=== PATIENT | female | born 1990 | race Caucasian/White ===

== ENCOUNTER 2017-03-28 15:51 | Emergency (ER) | payer MEDICAID, OTHER ==
[2017-03-28 15:51] VITALS: BMI 29.5
[2017-03-28 16:13] VITALS: BP 123/74; PULSE 82; RESP 18; TEMP 98.6; O2SAT 100
--- NOTE | 2017-03-28 17:07 | ED PDOC ---
HPI: Abdomen Time Seen by Provider: 03/28/17 16:25 Chief Complaint (Nursing): Back Pain Chief Complaint (Provider): Abdominal Pain History Per: Patient History/Exam Limitations: no limitations Onset/Duration Of Symptoms: Days (ongoing for 7 days), Waxing/Waning (worsening at night) Outside of [place] travel?: No Current Symptoms Are (Timing): Still Present Severity: Moderate Location Of Pain/Discomfort: RLQ, Other (R flank) Associated Symptoms: Back Pain (lower). denies: Fever, Chills, Nausea, Vomiting , Diarrhea, Loss Of Appetite, Urinary Symptoms Alleviating Factors: OTC Meds (Advil, takes 2 tablets every other night) Additional Complaint(s): Keisha Ray is a 26 year old female, with no pertinent past medical history, who presents to the emergency department for the evaluation of waxing and waning right-sided flank pain, worsening at night, radiating to her right lower quadrant and lower back, that the patient has been experiencing for the past 7 days. Patient reports taking 2 tablets of Advil every other night for her pain, providing mild relief. Patient has not seen her primary medical doctor for these symptoms and states that she felt like she was getting a urinary tract infection on Friday; however, these symptoms resolved with hydration by Friday morning. Denies a fever, chills, nausea, vomiting, diarrhea, loss of appetite, or urinary symptoms. Of note, patient is currently not taking any prescription medications and has no known drug allergies. PMD: Mariposa Drummond : 2 Para: 1 Past Medical History Reviewed: Historical Data, Nursing Documentation, Vital Signs Vital Signs: Last Vital Signs Temp 98.6 F 03/28/17 16:09 Pulse 82 03/28/17 16:09 Resp 18 03/28/17 16:09 BP 123/74 03/28/17 16:09 Pulse Ox 100 03/28/17 17:23 - Medical History PMH: No Chronic Diseases - Surgical History Surgical History: No Surg Hx - Family History Family History: States: No Known Family Hx - Social History Current smoker - smoking cessation education provided: No Ex-Smoker (has not smoked in the last 12 months): No Alcohol: None Drugs: Denies - Immunization History Hx Tetanus Toxoid Vaccination: No Hx Influenza Vaccination: No Hx Pneumococcal Vaccination: No - Home Medications Home Medications: Ambulatory Orders Medication Instructions Recorded Nitrofurantoin Macrocrystals 1 cap PO BID #14 cap 08/30/14 [Macrobid] Phenazopyridine Hydrochlorid2 1 tab PO TID #15 tab 08/30/14 [Pyridium] Nitrofurantoin Macrocrystals 100 mg PO BID #10 cap 04/30/15 [Macrobid] Multivit/Folic Acid/I 1 tab PO DAILY 04/16/16 [] Amoxicillin 875 mg PO BID #14 tab 11/06/16 Ibuprofen [Motrin] 600 mg PO Q6 PRN #15 tab 11/06/16 Sulfamethoxazole/Trimethoprim 1 tab PO BID #14 tab 03/28/17 [Bactrim DS 800 mg-160 mg] - Allergies Allergies/Adverse Reactions: Allergies Allergy/AdvReac Type Severity Reaction Status Date / Time No Known Allergies Allergy Verified 04/30/15 15:56 Review of Systems ROS Statement: Except As Marked, All Systems Reviewed And Found Negative Constitutional: Negative for: Fever, Chills Gastrointestinal: Positive for: Abdominal Pain (R flank, radiating to RLQ). Negative for: Nausea, Vomiting, Diarrhea, Other (loss of appetite) Genitourinary Female: Negative for: Dysuria, Hematuria Musculoskeletal: Positive for: Back Pain (lower) Physical Exam - Reviewed Nursing Documentation Reviewed: Yes Vital Signs Reviewed: Yes - Physical Exam Appears: Positive for: Well, Non-toxic, No Acute Distress Head Exam: Positive for: ATRAUMATIC, NORMOCEPHALIC Skin: Positive for: Normal Color, Warm, Dry Eye Exam: Positive for: EOMI, Normal appearance, PERRL ENT: Positive for: Normal ENT Inspection, Other (moist mucous membranes). Negative for: Pharyngeal Erythema, Tonsillar Exudate, Tonsillar Swelling Cardiovascular/Chest: Positive for: Regular Rate, Rhythm. Negative for: Murmur Respiratory: Positive for: Normal Breath Sounds. Negative for: Respiratory Distress Gastrointestinal/Abdominal: Positive for: Normal Exam, Soft. Negative for: Tenderness, Distended, Guarding, Rebound Back: Positive for: Normal Inspection. Negative for: L CVA Tenderness, R CVA Tenderness Neurologic/Psych: Positive for: Alert, Oriented - Laboratory Results Result Diagrams: 03/28/17 17:13 03/28/17 17:13 - ECG O2 Sat by Pulse Oximetry: 100 (RA) Pulse Ox Interpretation: Normal Medical Decision Making Medical Decision Makin:25 Initial Impression: Abdominal pain, lower back pain Differential Diagnoses include, but are not limited to, urinary tract infection , pyelonephritis, kidney stones, ovarian cyst, and musculoskeletal related issues. Initial Plan: * CT Abd & Pelvis w/o Contrast * Complete Blood Count * Comprehensive Metabolic Panel * Lipase * Erythrocyte Sedimentation Rate * Urine Dip * Urine * Urinalysis * Reevaluation Scribe Attestation: Documented by Rohit Owusu, acting as a scribe for Terri Huber MD. Provider Scribe Attestation: All medical record entries made by the Scribe were at my direction and personally dictated by me. I have reviewed the chart and agree that the record accurately reflects my personal performance of the history, physical exam, medical decision making, and the department course for this patient. I have also personally directed, reviewed, and agree with the discharge instructions and disposition. Disposition - Clinical Impression Clinical Impression: UTI (urinary tract infection) - Patient ED Disposition Is Patient to be Admitted: No Doctor Will See Patient In The: Office Counseled Patient/Family Regarding: Diagnosis, Need For Followup, Rx Given - Disposition Disposition: Routine/Home Disposition Time: 18:15 Condition: STABLE Prescriptions: Sulfamethoxazole/Trimethoprim [Bactrim DS 800 mg-160 mg] 1 tab PO BID #14 tab Instructions: Urinary Tract Infection in Women (ED) - POA Present On Arrival: None
[2017-03-28 17:25] LABS: RBC URINE 4 /hpf (0-3); URINE BACTERIA RARE (<OCC); URINE BILIRUBIN NEGATIVE (NEGATIVE); URINE BLOOD NEGATIVE (NEGATIVE); URINE COLOR YELLOW (YELLOW); URINE GLUCOSE (UA) NEG (Normal); URINE KETONE NEGATIVE (NEGATIVE); URINE LEUKOCYTE ESTERASE NEG Leu/uL (Negative); URINE PROTEIN NEGATIVE (NEGATIVE); URINE UROBILINOGEN 0.2-1.0 mg/dL (0.2-1.0); WBC URINE 8 /hpf (0-5)
[2017-03-28 17:36] LABS: BASO # 0.1 K/uL (0.0-0.2); BASO % 0.6 % (0.0-2.0); EOS # 0.3 K/uL (0.0-0.7); EOS % 2.1 % (0.0-4.0); HEMATOCRIT 40.1 % (34.0-47.0); LYMPH # 3.9 K/uL (1.0-4.3); LYMPH % 29.8 % (20.0-40.0); MEAN CORPUSCULAR HEMOGLOBIN 28.6 pg (27.0-31.0); MEAN CORPUSCULAR HGB CONC 33.3 g/dL (33.0-37.0); MEAN PLATELET VOLUME 8.6 fl (7.2-11.7); MONO # 1.1 K/uL (0.0-0.8); MONO % 8.6 % (0.0-10.0); NEUT # 7.7 K/uL (1.8-7.0); NEUT % 58.9 % (50.0-75.0); RED CELL DISTRIBUTION WIDTH 14.3 % (11.5-14.5); WHITE BLOOD COUNT 13.1 K/uL (4.8-10.8)
[2017-03-28] MEDS ORDERED: Tmp-Smz 800 mg-160 mg DS Tab ONE (17:37)
[2017-03-28] MEDS ORDERED: Tmp-Smz 800 mg-160 mg DS Tab PO STA (17:43)
[2017-03-28 17:46] LABS: ALB/GLOB RATIO 1.4 (1.0-2.1); ALKALINE PHOSPHATASE 84 U/L (38-126); ALT/SGPT 43 U/L (9-52); AST/SGOT 32 U/L (14-36); BILIRUBIN,TOTAL 0.3 mg/dl (0.2-1.3); BLOOD UREA NITROGEN 15 mg/dl (7-17); CALCIUM 9.4 mg/dL (8.4-10.2); CARBON DIOXIDE 26 mmol/L (22-30); CHLORIDE 103 mmol/L (98-107); GFR AFRICAN-AMERICAN > 60; GLUCOSE,RANDOM 87 mg/dL (65-105); LIPASE 125 U/L (23-300); POTASSIUM 4.1 MMOL/L (3.6-5.0); SODIUM 142 mmol/l (132-148); TOTAL PROTEIN 8.1 G/DL (6.3-8.2)
--- NOTE | 2017-03-28 18:18 | CT ---
PROCEDURE: CT Abdomen and Pelvis without intravenous contrast HISTORY: right flank pain radiating to RLQ for one week COMPARISON: Comparison is made to the previous study dated 05/05/2015 TECHNIQUE: Contrast Dose: 0 Axial and reformatted coronal and sagittal CT images of the abdomen and pelvis were obtained without IV or oral contrast administration. Radiation dose: Total exam DLP = 524.69 mGy-cm. This CT exam was performed using one or more of the following dose reduction techniques: Automated exposure control, adjustment of the mA and/or kV according to patient size, and/or use of iterative reconstruction technique. FINDINGS: LOWER THORAX: Unremarkable. LIVER: Unremarkable. No gross lesion or ductal dilatation. GALLBLADDER AND BILE DUCTS: Unremarkable. PANCREAS: Unremarkable. No gross lesion or ductal dilatation. SPLEEN: Unremarkable. ADRENALS: Unremarkable. No mass. KIDNEYS AND URETERS: Unremarkable. No hydronephrosis. No solid mass. VASCULATURE: Unremarkable. No aortic aneurysm. BOWEL: Unremarkable. No obstruction. No gross mural thickening. APPENDIX: Unremarkable. Normal appendix. PERITONEUM: Unremarkable. No free fluid. No free air. LYMPH NODES: Slightly enlarged mesenteric lymph nodes suspicious for mesenteric adenitis. BLADDER: Unremarkable. REPRODUCTIVE: The uterus is heterogeneous prominent in size. BONES: No acute fracture. OTHER FINDINGS: None. IMPRESSION: No evidence of nephrolithiasis or hydronephrosis. Slightly enlarged mesenteric lymph nodes. Correlate clinically for mesenteric adenitis. No evidence of cholecystitis pancreatitis or appendicitis. Heterogeneous prominent uterus.
== END 2017-03-28 19:07 | disposition home or self-care (01) ==
LOC: H.ER 15:51
DX: N39.0 Urinary tract infection, site not specified (principal); M54.5 Low back pain; I88.0 Nonspecific mesenteric lymphadenitis; Z87.891 Personal history of nicotine dependence

== ENCOUNTER 2018-02-24 10:27 | Emergency (ER) | payer MEDICAID ==
[2018-02-24 10:32] VITALS: BP 104/68; PULSE 98; RESP 16; TEMP 98.9; O2SAT 96
[2018-02-24 10:33] VITALS: BMI 24.5
--- NOTE | 2018-02-24 11:06 | ED PDOC ---
HPI: CCC, URI, Sore Throat Time Seen by Provider: 02/24/18 10:41 Chief Complaint (Nursing): ENT Problem Chief Complaint (Provider): ENT Prob History Per: Patient History/Exam Limitations: no limitations Have you had recent travel within the past 21 days to any of the following countries: [place], [place], [place] or [place]?: No Onset/Duration Of Symptoms: Days (2) Current Symptoms Are (Timing): Still Present Location Of Pain: Throat Sick Contacts (Context): Family Member(s) Associated Symptoms: Fever, Sore Throat. denies: Cough Ear Symptoms: Left: None, Right: None Severity: Mild Past Medical History Reviewed: Historical Data, Nursing Documentation, Vital Signs Vital Signs: Last Vital Signs Temp 98.9 F 02/24/18 10:30 Pulse 98 H 02/24/18 10:30 Resp 16 02/24/18 10:30 BP 104/68 02/24/18 10:30 Pulse Ox 96 02/24/18 10:30 - Family History Family History: States: Unknown Family Hx Other Family History: son with strep throat - Immunization History Hx Tetanus Toxoid Vaccination: No Hx Influenza Vaccination: No Hx Pneumococcal Vaccination: No - Home Medications Home Medications: Ambulatory Orders Medication Instructions Recorded Nitrofurantoin Macrocrystals 1 cap PO BID #14 cap 08/30/14 [Macrobid] Phenazopyridine Hydrochlorid2 1 tab PO TID #15 tab 08/30/14 [Pyridium] Nitrofurantoin Macrocrystals 100 mg PO BID #10 cap 04/30/15 [Macrobid] Multivit/Folic Acid/I 1 tab PO DAILY 04/16/16 [] Amoxicillin 875 mg PO BID #14 tab 11/06/16 Ibuprofen [Motrin] 600 mg PO Q6 PRN #15 tab 11/06/16 Sulfamethoxazole/Trimethoprim 1 tab PO BID #14 tab 03/28/17 [Bactrim DS 800 mg-160 mg] Amoxicillin/Clavulanate [Augmentin 1 tab PO BID #20 tab 02/24/18 875 MG-125 MG] Lidocaine 2% Viscous 10 ml MM QID #100 ml 02/24/18 - Allergies Allergies/Adverse Reactions: Allergies Allergy/AdvReac Type Severity Reaction Status Date / Time No Known Allergies Allergy Verified 06/28/15 15:56 Review of Systems ROS Statement: Except As Marked, All Systems Reviewed And Found Negative Constitutional: Positive for: Fever ENT: Positive for: Throat Pain. Negative for: Throat Swelling Respiratory: Negative for: Cough, Shortness of Breath Gastrointestinal: Negative for: Nausea, Vomiting Musculoskeletal: Negative for: Neck Pain Skin: Negative for: Rash Physical Exam - Reviewed Nursing Documentation Reviewed: Yes Vital Signs Reviewed: Yes - Physical Exam Appears: Positive for: Well, No Acute Distress. Negative for: Uncomfortable Head Exam: Positive for: ATRAUMATIC, NORMAL INSPECTION, NORMOCEPHALIC Skin: Positive for: Normal Color Eye Exam: Positive for: Normal appearance ENT: Positive for: Pharynx Is (bilaterally erythematous with exudates at tonsillar pillars; tonsils at +1), Pharyngeal Erythema, Tonsillar Exudate. Negative for: Tonsillar Swelling Neck: Positive for: Normal, Painless ROM, Supple. Negative for: Decreased ROM, Limited ROM Cardiovascular/Chest: Positive for: Regular Rate, Rhythm. Negative for: Gallop , Murmur, Bradycardia, Tachycardia, Friction Rub Respiratory: Positive for: Normal Breath Sounds. Negative for: Crackles, Rales , Stridor, Wheezing, Respiratory Distress Pulses-Carotid (L): 2+ Pulses-Carotid (R): 2+ Pulses-Radial (L): 2+ Pulses-Radial (R): 2+ Lymphatic: Positive for: Other (cervical node tenderness and mild swelling bilaterally) - ECG O2 Sat by Pulse Oximetry: 96 Medical Decision Making Medical Decision Making: Centor Criteria 4/5 + for strep Pt has fever, exudates, swollen nodes and lacks cough Tx for strep with augmentin 875 x 10days Disposition - Clinical Impression Clinical Impression: Strep pharyngitis, Streptococcal sore throat - Patient ED Disposition Is Patient to be Admitted: No Doctor Will See Patient In The: Office Counseled Patient/Family Regarding: Studies Performed, Diagnosis, Need For Followup, Rx Given - Disposition Referrals: [facility] [Outside] Disposition: Routine/Home Disposition Time: 11:09 Condition: GOOD Prescriptions: Amoxicillin/Clavulanate [Augmentin 875 MG-125 MG] 1 tab PO BID #20 tab Lidocaine 2% Viscous 10 ml MM QID #100 ml Instructions: Strep Throat (DC), Sore Throat, Adult (DC), Sore Throat in Adults Forms: [facility] (Bel[place]ian), [facility] ED School/Work Excuse
== END 2018-02-24 11:28 | disposition home or self-care (01) ==
LOC: H.ER 10:27
DX: J02.0 Streptococcal pharyngitis (principal)

== ENCOUNTER 2018-08-18 11:13 | Emergency (ER) | payer MEDICAID, OTHER ==
[2018-08-18 11:13] VITALS: BMI 24.5
[2018-08-18 11:19] VITALS: BP 134/84; PULSE 86; RESP 18; TEMP 98.6; O2SAT 98
[2018-08-18] MEDS ORDERED: Lidocaine PF 2% (5 ml) Inj (For Cardiac Arrhy) ONE (12:01)
[2018-08-18] MEDS ORDERED: Lidocaine 2% Inj (20ml) INFIL ONE (12:04)
--- NOTE | 2018-08-18 12:58 | ED PDOC ---
HPI: General Adult Time Seen by Provider: 08/18/18 12:03 Chief Complaint (Nursing): Abnormal Skin Integrity Chief Complaint (Provider): finger laceration History Per: Patient (28 y/o female here with thumb laceration left hand that occurred today when she injured self with icebox man knife. IS right hand dominant. Able to flex and extend thumb without difficulty. tetanus up to date) Past Medical History Reviewed: Historical Data, Nursing Documentation, Vital Signs Vital Signs: Last Vital Signs Temp 98.6 F 08/18/18 11:19 Pulse 86 08/18/18 11:19 Resp 18 08/18/18 11:19 BP 134/84 08/18/18 11:19 Pulse Ox 98 08/18/18 11:19 - Family History Family History: States: Unknown Family Hx - Immunization History Hx Tetanus Toxoid Vaccination: No Hx Influenza Vaccination: No Hx Pneumococcal Vaccination: No - Home Medications Home Medications: Ambulatory Orders Medication Instructions Recorded Nitrofurantoin Macrocrystals 1 cap PO BID #14 cap 08/30/14 [Macrobid] Phenazopyridine Hydrochlorid2 1 tab PO TID #15 tab 08/30/14 [Pyridium] Nitrofurantoin Macrocrystals 100 mg PO BID #10 cap 04/30/15 [Macrobid] Multivit/Folic Acid/I 1 tab PO DAILY 04/16/16 [] Amoxicillin 875 mg PO BID #14 tab 11/06/16 Ibuprofen [Motrin] 600 mg PO Q6 PRN #15 tab 11/06/16 Sulfamethoxazole/Trimethoprim 1 tab PO BID #14 tab 03/28/17 [Bactrim DS 800 mg-160 mg] Amoxicillin/Clavulanate [Augmentin 1 tab PO BID #20 tab 02/24/18 875 MG-125 MG] Lidocaine 2% Viscous 10 ml MM QID #100 ml 02/24/18 - Allergies Allergies/Adverse Reactions: Allergies Allergy/AdvReac Type Severity Reaction Status Date / Time No Known Allergies Allergy Verified 04/30/15 15:56 Review of Systems ROS Statement: Except As Marked, All Systems Reviewed And Found Negative Physical Exam - Reviewed Nursing Documentation Reviewed: Yes Vital Signs Reviewed: Yes - Physical Exam Appears: Positive for: Well, Non-toxic, No Acute Distress Head Exam: Positive for: ATRAUMATIC, NORMAL INSPECTION, NORMOCEPHALIC Skin: Positive for: Normal Color, Warm, DRY Eye Exam: Positive for: EOMI, Normal appearance, PERRL ENT: Positive for: Normal ENT Inspection Neck: Positive for: Normal, Painless ROM Cardiovascular/Chest: Positive for: Regular Rate, Rhythm Respiratory: Positive for: CNT, Normal Breath Sounds Gastrointestinal/Abdominal: Positive for: Normal Exam, Soft Back: Positive for: Normal Inspection Extremity: Positive for: Normal ROM, Other (2.25 cm laceration linear note volar surface of distal phalanx of left thumb. Able to flex and extend at DIP without difficulty.) Neurologic/Psych: Positive for: Alert, Oriented - ECG O2 Sat by Pulse Oximetry: 98 Disposition - Clinical Impression Clinical Impression: Finger laceration - Patient ED Disposition Is Patient to be Admitted: No - Disposition Disposition: Routine/Home Disposition Time: 12:59 Condition: FAIR Additional Instructions: RETURN TO ED/ FOLLOW UP WITH URGENT CARE/PMD IN 7 TO 10 DAYS FOR REMOVAL OF SUTURES. Instructions: Laceration Repair With Stitches (DC) Forms: [facility] ED School/Work Excuse Procedure: Wound Repair - Time Performed Time Performed: 12:58 - Time Out Time Out: Site verified - Consent Obtained Consent obtained: Verbal - Performed by Performed by: Mid-level Provider - Indications Indication(s):: Laceration - Location Location:: Left, Volar, Hand Finger:: Left, Thumb Shape:: Linear Dimensions Length cm: 2.25cm Depth:: Epidermis - Anesthetic Technique Anesthetic Technique: Regional block Local/Regional Anesthetic:: Lidocaine 2% - Irrigated Irrigated with ml of normal saline: 150ml - Complexity Complexity:: Simple (one layer) - Wound repair method Sutures:: # (five), Size (5-0), Type (nylon), Technique (interrupted) - Patient tolerated procedure Patient Tolerated Procedure:: Well
== END 2018-08-18 13:00 | disposition home or self-care (01) ==
LOC: H.ER 11:13
DX: S61.012A Laceration without foreign body of left thumb without damage to nail, initial encounter (principal); W26.8XXA Contact with other sharp object(s), not elsewhere classified, initial encounter; Y92.89 Other specified places as the place of occurrence of the external cause

== ENCOUNTER 2018-12-23 09:21 | Emergency (ER) | payer OTHER ==
[2018-12-23 09:26] VITALS: BMI 25.4
[2018-12-23] MEDS ORDERED: Sodium Chloride 0.9% 1,000 ML IV STA (09:49)
--- NOTE | 2018-12-23 09:59 | ED PDOC ---
HPI: Headache Time Seen by Provider: 12/23/18 09:28 Chief Complaint (Nursing): Headache Chief Complaint (Provider): Headache History Per: Patient History/Exam Limitations: no limitations Onset/Duration Of Symptoms: Days (x4) Current Symptoms Are (Timing): Still Present Associated Symptoms: Nausea. denies: Vomiting Additional Complaint(s): Keisha Ray is a 28 year old female with a past medical history of migraines who is presenting to the ED for evaluation of lump on right neck associated with headaches onset 4 days ago. Patient states that she has pain to right head, face, neck, and shoulder with mild blurry vision occasionally, nausea, fatigue, and chills. She admits that she has been taking Tylenol and Ibuprofen with no relief in symptoms. Patient states that she has had similar headaches in the past and denies that this headache is any worse. She also denies any vomiting, numbness, tingling, shortness of breath, chest pain, neck stiffness, cough, congestion, runny nose, or ear pain. Patient offers no other medical complaints at this time. Has migraine and is similar to that. PMD: Rolando Past Medical History Reviewed: Historical Data, Nursing Documentation, Vital Signs Vital Signs: Last Vital Signs Temp 99.9 F H 12/23/18 09:26 Pulse 95 H 12/23/18 09:26 Resp 20 12/23/18 09:26 BP 111/71 12/23/18 09:26 Pulse Ox 100 12/23/18 09:26 - Medical History PMH: Migraine - Surgical History Surgical History: No Surg Hx - Family History Family History: States: Unknown Family Hx - Social History Current smoker - smoking cessation education provided: No Alcohol: None Drugs: Denies - Immunization History Hx Tetanus Toxoid Vaccination: No Hx Influenza Vaccination: No Hx Pneumococcal Vaccination: No - Home Medications Home Medications: Ambulatory Orders Medication Instructions Recorded Nitrofurantoin Macrocrystals 1 cap PO BID #14 cap 08/30/14 [Macrobid] Phenazopyridine Hydrochlorid2 1 tab PO TID #15 tab 08/30/14 [Pyridium] Nitrofurantoin Macrocrystals 100 mg PO BID #10 cap 04/30/15 [Macrobid] Multivit/Folic Acid/I 1 tab PO DAILY 04/16/16 [] Amoxicillin 875 mg PO BID #14 tab 01/04/17 Ibuprofen [Motrin] 600 mg PO Q6 PRN #15 tab 11/06/16 Sulfamethoxazole/Trimethoprim 1 tab PO BID #14 tab 03/28/17 [Bactrim DS 800 mg-160 mg] Amoxicillin/Clavulanate [Augmentin 1 tab PO BID #20 tab 02/24/18 875 MG-125 MG] Lidocaine 2% Viscous 10 ml MM QID #100 ml 02/24/18 Amoxicillin/Potassium Clav 1 each PO BID 7 Days tablet 12/23/18 [Augmentin 500-125 Tablet] Ibuprofen [Motrin] 600 mg PO TID 7 Days tab 12/23/18 - Allergies Allergies/Adverse Reactions: Allergies Allergy/AdvReac Type Severity Reaction Status Date / Time No Known Allergies Allergy Verified 04/30/15 15:56 Review of Systems ROS Statement: Except As Marked, All Systems Reviewed And Found Negative Constitutional: Positive for: Chills. Negative for: Fever Eyes: Positive for: Vision Change (mild occasional blurry vision ) ENT: Negative for: Ear Pain, Nose Congestion Cardiovascular: Negative for: Chest Pain Respiratory: Negative for: Cough, Shortness of Breath Gastrointestinal: Positive for: Nausea. Negative for: Vomiting, Diarrhea Musculoskeletal: Positive for: Neck Pain (with lump but no stiffness ) Neurological: Positive for: Headache. Negative for: Weakness, Numbness, Dizziness Physical Exam - Reviewed Nursing Documentation Reviewed: Yes Vital Signs Reviewed: Yes - Physical Exam Appears: Positive for: Well, Non-toxic, No Acute Distress Head Exam: Positive for: ATRAUMATIC, NORMAL INSPECTION, NORMOCEPHALIC Skin: Positive for: Normal Color, Warm, DRY Eye Exam: Positive for: EOMI, Normal appearance, PERRL ENT: Positive for: Other (tenderness to right sternocleidomastoid, no erythema ) Neck: Positive for: Normal Cardiovascular/Chest: Positive for: Regular Rate, Rhythm. Negative for: Murmur Respiratory: Positive for: Normal Breath Sounds. Negative for: Respiratory Distress Gastrointestinal/Abdominal: Positive for: Normal Exam, Soft. Negative for: Tenderness Back: Positive for: Normal Inspection. Negative for: L CVA Tenderness, R CVA Tenderness Extremity: Positive for: Normal ROM. Negative for: Deformity, Swelling Neurologic/Psych: Positive for: Alert, training officer II-XII, Oriented. Negative for: Motor/Sensory Deficits, Aphasia, Facial Droop - Laboratory Results Result Diagrams: 12/23/18 10:28 12/23/18 10:28 Lab Results: no acute - ECG O2 Sat by Pulse Oximetry: 100 (RA) Pulse Ox Interpretation: Normal - CT Scan/US ct Other Rad Studies (CT/US): Read By Radiologist Other Rad Interpretation: lymphadenitis - Progress ED Course And Treament: 1309: Stable. AAOx3. Pain free. Tolerated PO. Fu with pcp. Medical Decision Making Medical Decision Making: Time: 9:49 Plan: --CT Neck Soft Tissue --CMP --ED Urine --CBC --IV Fluids --Reglan 10 mg IV --Toradol 15 mg IVP --Rapid Strep Scribe Attestation: Documented by Cleo Albert, acting as a scribe for Walker Gómez MD. Provider Scribe Attestation: All medical record entries made by the Scribe were at my direction and personally dictated by me. I have reviewed the chart and agree that the record accurately reflects my personal performance of the history, physical exam, medical decision making, and the department course for this patient. I have also personally directed, reviewed, and agree with the discharge instructions and disposition. Disposition - Clinical Impression Clinical Impression: Headache, Lymphadenitis - Patient ED Disposition Is Patient to be Admitted: No Counseled Patient/Family Regarding: Studies Performed, Diagnosis, Need For Followup, Rx Given - Disposition Referrals: [facility] [Outside] - 12/24/18 Disposition: Routine/Home Disposition Time: 13:13 Condition: STABLE Additional Instructions: Return if not better in 3 days. Prescriptions: Amoxicillin/Potassium Clav [Augmentin 500-125 Tablet] 1 each PO BID 7 Days tablet Ibuprofen [Motrin] 600 mg PO TID 7 Days tab Instructions: Headache, Adult, Lymphadenitis Forms: [facility] ED School/Work Excuse, [facility] (Chinese)
[2018-12-23 10:34] LABS: BASO % 0.6 % (0.0-2.0); EOS % 0.4 % (0.0-4.0); HEMOGLOBIN 14.1 g/dL (12.0-16.0); LYMPH % 25.6 % (20.0-40.0); MEAN CELL VOLUME 85.5 fl (81.0-99.0); MEAN CORPUSCULAR HEMOGLOBIN 29.3 pg (27.0-31.0); MEAN CORPUSCULAR HGB CONC 34.3 g/dL (33.0-37.0); MEAN PLATELET VOLUME 8.2 fl (7.2-11.7); MONO % 12.3 % (0.0-10.0); NEUT # 4.8 K/uL (1.8-7.0); NEUT % 61.1 % (50.0-75.0); NRBC % 0.1 % (0.0-0.0); RBC 4.83 Mil/uL (3.80-5.20); RED CELL DISTRIBUTION WIDTH 13.8 % (11.5-14.5); WHITE BLOOD COUNT 7.8 K/uL (4.8-10.8)
[2018-12-23 10:45] LABS: ALB/GLOB RATIO 1.3 (1.0-2.1); ALBUMIN 4.5 g/dL (3.5-5.0); ALT/SGPT 41 U/L (9-52); AST/SGOT 37 U/L (14-36); BLOOD UREA NITROGEN 11 mg/dl (7-17); CALCIUM 9.2 mg/dL (8.4-10.2); GFR NON-AFRICAN AMERICAN > 60
[2018-12-23] MEDS ORDERED: Sodium Chloride 0.9% 50 ML IV ONE (11:56)
[2018-12-23] MEDS ORDERED: Iohexol 300 100 ML IJ ONE (11:56)
--- NOTE | 2018-12-23 12:49 | CT ---
Date of service: 12/23/2018 PROCEDURE: CT NECK WITH CONTRAST HISTORY: tender, swelling R sternocleidomastoid area COMPARISON: None available. TECHNIQUE: CT of the neck with intravenous contrast. Coronal and sagittal reformats generated. Intravenous contrast dose: 100 cc Omnipaque 300 Radiation dose: Total exam DLP = 275.74 mGy-cm. This CT exam was performed using one or more of the following dose reduction techniques: Automated exposure control, adjustment of the mA and/or kV according to patient size, and/or use of iterative reconstruction technique. FINDINGS: NASOPHARYNX: Unremarkable. SUPRAHYOID NECK: Unremarkable oropharynx, oral cavity, parapharyngeal space and retropharyngeal space. INFRAHYOID NECK: Unremarkable larynx, hypopharynx, and supraglottic space. Vocal cords intact. MASS: None. GLANDS: Parotid and submandibular glands unremarkable. Normal size thyroid gland, without nodule. LYMPH NODES: There are multiple enlarged level 3 cervical lymph nodes on the right side only. There is hazy increased attenuation of the surrounding fat indicating possible lymphadenitis. There are shotty subcentimeter level 5b lymph nodes noted as well. Nonspecific finding. No other significant cervical lymphadenopathy. CERVICAL SPINE: No fracture or focal lesion. VASCULAR STRUCTURES: Unremarkable. OTHER FINDINGS: None. IMPRESSION: Right-sided cervical lymphadenitis involving level 3 level 5B lymph nodes. Nonspecific. No abnormality of the sternocleidomastoid muscle itself noted.
[2018-12-23 13:39] VITALS: TEMP 98.6; O2SAT 99
[2018-12-23 14:32] VITALS: BP 107/63; PULSE 84; RESP 15
== END 2018-12-23 14:30 | disposition home or self-care (01) ==
LOC: H.ER 09:21
DX: R51 Headache (principal); I88.9 Nonspecific lymphadenitis, unspecified
CPT/HCPCS: 70491; 80053; 81025; 85025; 87070; 87430; 96361; 96374; 96375; 99285; J1885; J2765; J7030; Q9967